=== PATIENT | female | born 1970 | race Hispanic/Latino ===

== ENCOUNTER 2016-10-14 09:34 | Day surgery (SDC) | payer MEDICAID ==
[~2016-10-14 09:34] MED LIST: CARAFATE PO; NEXIUM40 M1 PO; OMEPRAZOLE20 M2 PO
[2016-10-14 11:59] VITALS: BP 116/60
== END 2016-10-14 11:55 | disposition home or self-care (01) | DRG 392 ==
LOC: ENDO 09:34 → ORM 13:45
PROVIDERS: ATTEND Internal Medicine Gastroenterology
PROC: 0DB68ZX Excision of Stomach, Via Natural or Artificial Opening Endoscopic, Diagnostic (ICD-10-PCS; principal; 2016-10-14)
DX: R10.11 Right upper quadrant pain (principal); K76.0 Fatty (change of) liver, not elsewhere classified; K25.9 Gastric ulcer, unspecified as acute or chronic, without hemorrhage or perforation; R10.13 Epigastric pain; K21.9 Gastro-esophageal reflux disease without esophagitis; K31.7 Polyp of stomach and duodenum; K29.50 Unspecified chronic gastritis without bleeding; Q40.8 Other specified congenital malformations of upper alimentary tract; K44.9 Diaphragmatic hernia without obstruction or gangrene; F41.9 Anxiety disorder, unspecified; I10 Essential (primary) hypertension; F32.9 Major depressive disorder, single episode, unspecified

== ENCOUNTER 2017-10-28 22:41 | Emergency (ER) | payer BC ==
[~2017-10-28] VITALS: Ht 162.6 cm; Wt 109.8 kg
[2017-10-28] MEDS ORDERED: CIPROFLOXACN500 MG PO (23:11)
[2017-10-28 23:20] VITALS: BP 135/83
== END 2017-10-28 23:49 | disposition home or self-care (01) | DRG 156 ==
LOC: ED 22:41
DX: S09.21XA Traumatic rupture of right ear drum, initial encounter (principal); W22.8XXA Striking against or struck by other objects, initial encounter; Y93.89 Activity, other specified